=== PATIENT | male | born 1955 ===

== ENCOUNTER 2023-05-31 15:19 | Emergency (ER) | payer MEDICARE, OTHER ==
[2023-05-31] MEDS ORDERED: Lidocaine 1% 5 ML VIAL INJECT ONE (15:24)
[2023-05-31] MEDS ORDERED: Bacitracin Oint 1 GM U/D Packet TOP ONE (15:25)
== END 2023-05-31 16:08 | disposition home or self-care (01) ==
LOC: DL.ED 15:19
DX: S69.91XA Unspecified injury of right wrist, hand and finger(s), initial encounter (principal); W45.8XXA Other foreign body or object entering through skin, initial encounter
CPT/HCPCS: 64450; 99282; A9270-GY; J3490